=== PATIENT | female | born 1980 | race Hispanic/Latino ===

== ENCOUNTER 2019-02-11 11:33 | Emergency (ER) | payer BC ==
[2019-02-11] MEDS ORDERED: LIDOCAINE HCL-MPF 1% 2ML VIAL ONE (13:31)
[2019-02-11] MEDS ORDERED: CEFTRIAXONE SODIUM 1 GM ONE (13:31)
[2019-02-11] MEDS ORDERED: ONDANSETRON ODT 4 MG TAB ONE (13:31)
== END 2019-02-11 15:10 | disposition home or self-care (01) ==
LOC: EDH 11:33
DX: L03.211 Cellulitis of face (principal); E78.00 Pure hypercholesterolemia, unspecified; Z87.891 Personal history of nicotine dependence; Z90.49 Acquired absence of other specified parts of digestive tract
CPT/HCPCS: 96372; 99284; J0696; J3490